=== PATIENT | male | born 1960 | race Caucasian/White ===

== ENCOUNTER 2016-05-25 13:38 | Emergency (ER) | payer OTHER ==
[~2016-05-25] VITALS: Ht 182.9 cm; Wt 89.7 kg
[2016-05-25 13:46] VITALS: BP 135/78; PULSE 61; RESP 16; TEMP 98.1; O2SAT 97
[2016-05-25] MEDS ORDERED: ATOR10TA15 PO (13:51)
[2016-05-25] MEDS ORDERED: IBUPROFEN 800 MG TAB PO ONE (14:15)
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
[2016-05-25 15:23] VITALS: RESP 16
[2016-05-25] MEDS ORDERED: IBUP800T23 PO (15:25)
[2016-05-25] MEDS ORDERED: CYCL1TAB29 PO (15:25)
== END 2016-05-25 15:40 | disposition home or self-care (01) ==
LOC: PHEFT 13:38
DX: S16.1XXA Strain of muscle, fascia and tendon at neck level, initial encounter (principal); E78.00 Pure hypercholesterolemia, unspecified; M79.1 Myalgia; V43.52XA Car driver injured in collision with other type car in traffic accident, initial encounter; Y93.9 Activity, unspecified; Y92.410 Unspecified street and highway as the place of occurrence of the external cause; Y99.8 Other external cause status
CPT/HCPCS: 72040; 99283